=== PATIENT | female | born 1975 | race Caucasian/White ===

== ENCOUNTER 2018-12-08 15:03 | Emergency (ER) | payer BC ==
[~2018-12-08] VITALS: Ht 172.7 cm; Wt 107.0 kg
[2018-12-08 15:19] VITALS: Ht 172.7 cm; Wt 107.0 kg
[2018-12-08 17:58] VITALS: BP 131/78
== END 2018-12-08 17:58 | disposition home or self-care (01) ==
LOC: ED 15:03
DX: M79.604 Pain in right leg (principal); Z88.6 Allergy status to analgesic agent; Z88.5 Allergy status to narcotic agent